=== PATIENT | female | born 1985 | race Caucasian/White ===

== ENCOUNTER 2016-06-22 12:15 | Emergency (ER) | payer OTHER ==
[2016-06-22] MEDS ORDERED: Aspirin Low Dose CHEW TAB* 81 MG PO ONE (12:45)
--- NOTE | 2016-06-22 13:07 | RAD ---
INDICATION: Chest pain COMPARISON: None. TECHNIQUE: Single AP portable view of the chest was obtained. FINDINGS: Image quality is compromised due to the relative inferiority of a portable chest x-ray. The heart and mediastinum exhibit normal size and contour. The lungs are grossly clear. There is no evidence of a large pleural effusion. Visualized bones are normal for the patient's age. IMPRESSION: No radiographic evidence for acute cardiopulmonary abnormality on this portable chest x-ray.
[2016-06-22 13:18] LABS: Hematocrit 42 % (35-47); Mean Corpuscular HGB Conc 33 g/dl (31-36); Mean Corpuscular Hemoglobin 29 pg (27-31); Mean Corpuscular Volume 86 fL (80-97); Mean Platelet Volume 8 um3 (7.4-10.4); Red Blood Count 4.91 10^6/ul (4.0-5.4); Red Cell Distribution Width 13 % (10.5-15); White Blood Count 7.8 10^3/ul (3.5-10.8)
[2016-06-22 13:36] LABS: ALT 46 U/L (7-52); AST 33 U/L (13-39); Albumin 4.1 g/dL (3.2-5.2); Alkaline Phosphatase 66 U/L (34-104); Anion Gap 7 mmol/L (2-11); BUN/Creatinine Ratio 18.1 (8-20); Blood Urea Nitrogen 13 mg/dL (6-24); CO2 Carbon Dioxide 25 mmol/L (22-32); Calcium 9.8 mg/dL (8.6-10.3); Chloride 103 mmol/L (101-111); Creatine Kinase 181 U/L (10-223); EGFR African American 123.2 (>60); EGFR Non-African American 95.8 (>60); Globulin 3.8 g/dL (2-4); Glucose 91 mg/dL (70-100); Magnesium 2.1 mg/dL (1.9-2.7); Potassium 3.7 mmol/L (3.5-5.0); Sodium 135 mmol/L (133-145); Total Protein 7.9 g/dL (6.4-8.9)
[2016-06-22] MEDS ORDERED: Iohexol 350* (CONTRAST) 500 ML MDV IV ONE (13:55)
--- NOTE | 2016-06-22 14:33 | RAD ---
INDICATION: Chest pain. Short of breath. Evaluate for pulmonary embolus. COMPARISON: Chest x-ray June 22, 2016 TECHNIQUE: Axial source images were obtained from the thoracic inlet to the hemidiaphragms following administration of [address] angiographic technique was utilized. Coronal and sagittal reconstructed images were acquired. CHEST FINDINGS: Neck/thyroid: The visualized neck to include the thyroid appear normal. Chest wall: There are no acute abnormalities of the bony thorax or chest wall. There is no supraclavicular, infraclavicular, or axillary lymphadenopathy. Lungs : There are no pulmonary parenchymal masses or infiltrates. The pulmonary interstitium appears normal. There are no endobronchial lesions. Cardiomediastinal structures: There is no CT evidence of acute pulmonary embolic disease. The heart is normal in size. There is no pericardial effusion. There is no evidence of aortic aneurysm or dissection. There is no mediastinal or hilar adenopathy. The esophagus appears normal. Pleura : There are no pleural-based masses or effusions. Other: None. IMPRESSION: NO CT EVIDENCE OF ACUTE PULMONARY EMBOLIC DISEASE. LUNGS CLEAR.
[2016-06-22 14:38] LABS: TSH (Thyroid Stimulating Horm) 0.78 mcIU/mL (0.34-5.60)
[2016-06-22] MEDS ORDERED: Ketorolac INJ* 30 MG/ML 1 ML VIAL IV PUSH ONE (14:49)
--- NOTE | 2016-06-22 14:58 | ED ---
Leopoldo Pantoja Adam, scribed for Moose Fierro MD on 06/22/16 at 1248 . HPI Chest Pain - HPI Summary HPI Summary: Pt is a 31 year old female presenting with CP. She states that she began having the pain while she was at home at 10:30 this morning. It is a sharp pain and it radiates to her back between her shoulder blades. The pain is 8/10 in severity now but it gets worse with movement and deep breaths. She also c/o difficulty catching her breath. She denies any N/V/D or abdominal pain. She denies being on oral contraception. She denies any PMHx or surgical hx. She denies any tobacco/alcohol/drug use. - History of Current Complaint Chief Complaint: EDChestPainROMI Time Seen by Provider: 06/22/16 12:39 Hx Obtained From: Patient Onset/Duration: Started Hours Ago, Atraumatic, Still Present Timing: Constant Initial Severity: Moderate Current Severity: Moderate Pain Intensity: 8 Pain Scale Used: 0-10 Numeric Chest Pain Location: Diffuse Chest Pain Radiates: Yes Chest Pain Radiates To:: Back Character: Sharp/Stabbing Aggravating Factor(s): Movement, Deep Breaths Alleviating Factor(s): Nothing Associated Signs and Symptoms: Positive: Shortness of Breath. Negative: Nausea , Vomiting - Allergy/Home Medications Allergies/Adverse Reactions: Allergies Allergy/AdvReac Type Severity Reaction Status Date / Time No Known Allergies Allergy Verified 06/22/16 12:20 PMH/Surg Hx/FS Hx/Imm Hx Endocrine/Hematology History: Denies: Hx Diabetes, Hx Thyroid Disease Cardiovascular History: Denies: Hx Hypertension Respiratory History: Denies: Hx Asthma, Hx Chronic Obstructive Pulmonary Disease (COPD) GI History: Denies: Hx Ulcer Infectious Disease History: No Infectious Disease History: Denies: Hx Hepatitis, Hx Human Immunodeficiency Virus (HIV), Traveled Outside the [place] in Last 30 Days - Family History Known Family History: Positive: None - Reviewed and noncontributory - Social History Occupation: Employed Part-time Lives: Alone Alcohol Use: None Hx Substance Use: No Substance Use Type: Reports: None Hx Tobacco Use: No Smoking Status (MU): Never Smoked Tobacco Have You Smoked in the Last Year: No Review of Systems Positive: Chest Pain Positive: Shortness Of Breath Negative: Abdominal Pain, Vomiting, Diarrhea, Nausea All Other Systems Reviewed And Are Negative: Yes Physical Exam - Summary Physical Exam Summary: VITAL SIGNS: Reviewed. GENERAL: Patient is a well developed and nourished who is lying comfortable in the stretcher. Patient is not in any acute respiratory distress. HEAD AND FACE: No signs of trauma. No ecchymosis, hematomas or skull depressions. No sinus tenderness. EYES: PERRLA, EOMI x 2, No injected conjunctiva, no nystagmus. EARS: Hearing grossly intact. Ear canals and tympanic membranes are within normal limits. MOUTH: Oropharynx within normal limits. NECK: Supple, trachea is midline, no adenopathy, no JVD, no carotid bruit, no c- spine tenderness, neck with full ROM. CHEST: Symmetric, positive tenderness at palpation at both rib cage areas. LUNGS: Clear to auscultation bilaterally. No wheezing or crackles. CVS: Regular rate and rhythm, S1 and S2 present, no murmurs or gallops appreciated. ABDOMEN: Soft, non-tender. No signs of distention. No rebound no guarding, and no masses palpated. Bowel sounds are normal. EXTREMITIES: FROM in all major joints, no edema, no cyanosis or clubbing. NEURO: Alert and oriented x 3. No acute neurological deficits. Speech is normal and follows commands. SKIN: Dry and warm Triage Information Reviewed: Yes Vital Signs On Initial Exam: Initial Vitals Temp Pulse Resp BP Pulse Ox 98.5 F 100 16 136/80 100 06/22/16 12:20 06/22/16 12:20 06/22/16 12:20 06/22/16 12:20 06/22/16 12:20 Vital Signs Reviewed: Yes Diagnostics - Vital Signs Vital Signs Temp Pulse Resp BP Pulse Ox 06/22/16 12:20 98.5 F 100 16 136/80 100 - Laboratory Lab Results: Lab Results 06/22/16 06/22/16 06/22/16 Range/Units 13:07 13:07 13:07 WBC 7.8 (3.5-10.8) 10^3/ul RBC 4.91 (4.0-5.4) 10^6/ul Hgb 14.0 (12.0-16.0) g/dl Hct 42 (35-47) % MCV 86 (80-97) fL MCH 29 (27-31) pg MCHC 33 (31-36) g/dl RDW 13 (10.5-15) % Plt Count 291 (150-450) 10^3/ul MPV 8 (7.4-10.4) um3 Neut % (Auto) 73.6 (38-83) % Lymph % (Auto) 16.5 L (25-47) % [place] % (Auto) 7.7 (1-9) % Eos % (Auto) 1.8 (0-6) % Baso % (Auto) 0.4 (0-2) % Absolute Neuts (auto) 5.8 (1.5-7.7) 10^3/ul Absolute Lymphs (auto) 1.3 (1.0-4.8) 10^3/ul Absolute Monos (auto) 0.6 (0-0.8) 10^3/ul Absolute Eos (auto) 0.1 (0-0.6) 10^3/ul Absolute Basos (auto) 0 (0-0.2) 10^3/ul Absolute Nucleated RBC 0 10^3/ul Nucleated RBC % 0 D-Dimer, Quantitative 247 H (Less Than 230) ng/mL Sodium 135 (133-145) mmol/L Potassium 3.7 (3.5-5.0) mmol/L Chloride 103 (101-111) mmol/L Carbon Dioxide 25 (22-32) mmol/L Anion Gap 7 (2-11) mmol/L BUN 13 (6-24) mg/dL Creatinine 0.72 (0.51-0.95) mg/dL Est GFR ( Amer) 123.2 (>60) Est GFR (Non-Af Amer) 95.8 (>60) BUN/Creatinine Ratio 18.1 (8-20) Glucose 91 (70-100) mg/dL Lactic Acid (0.5-2.0) mmol/L Calcium 9.8 (8.6-10.3) mg/dL Magnesium 2.1 (1.9-2.7) mg/dL Total Bilirubin 0.30 (0.2-1.0) mg/dL AST 33 (13-39) U/L ALT 46 (7-52) U/L Alkaline Phosphatase 66 (34-104) U/L Total Creatine Kinase 181 (10-223) U/L CK-MB (CK-2) 1.4 (0.6-6.3) ng/mL Troponin I 0.00 (<0.04) ng/mL B-Natriuretic Peptide ( - 100) pg/mL Total Protein 7.9 (6.4-8.9) g/dL Albumin 4.1 (3.2-5.2) g/dL Globulin 3.8 (2-4) g/dL Albumin/Globulin Ratio 1.1 (1-3) TSH 0.78 (0.34-5.60) mcIU/mL Beta HCG, Quant < 0.60 mIU/mL 06/22/16 06/22/16 Range/Units 13:07 13:07 WBC (3.5-10.8) 10^3/ul RBC (4.0-5.4) 10^6/ul Hgb (12.0-16.0) g/dl Hct (35-47) % MCV (80-97) fL MCH (27-31) pg MCHC (31-36) g/dl RDW (10.5-15) % Plt Count (150-450) 10^3/ul MPV (7.4-10.4) um3 Neut % (Auto) (38-83) % Lymph % (Auto) (25-47) % [place] % (Auto) (1-9) % Eos % (Auto) (0-6) % Baso % (Auto) (0-2) % Absolute Neuts (auto) (1.5-7.7) 10^3/ul Absolute Lymphs (auto) (1.0-4.8) 10^3/ul Absolute Monos (auto) (0-0.8) 10^3/ul Absolute Eos (auto) (0-0.6) 10^3/ul Absolute Basos (auto) (0-0.2) 10^3/ul Absolute Nucleated RBC 10^3/ul Nucleated RBC % D-Dimer, Quantitative (Less Than 230) ng/mL Sodium (133-145) mmol/L Potassium (3.5-5.0) mmol/L Chloride (101-111) mmol/L Carbon Dioxide (22-32) mmol/L Anion Gap (2-11) mmol/L BUN (6-24) mg/dL Creatinine (0.51-0.95) mg/dL Est GFR ( Amer) (>60) Est GFR (Non-Af Amer) (>60) BUN/Creatinine Ratio (8-20) Glucose (70-100) mg/dL Lactic Acid 1.0 (0.5-2.0) mmol/L Calcium (8.6-10.3) mg/dL Magnesium (1.9-2.7) mg/dL Total Bilirubin (0.2-1.0) mg/dL AST (13-39) U/L ALT (7-52) U/L Alkaline Phosphatase (34-104) U/L Total Creatine Kinase (10-223) U/L CK-MB (CK-2) (0.6-6.3) ng/mL Troponin I (<0.04) ng/mL B-Natriuretic Peptide 39 ( - 100) pg/mL Total Protein (6.4-8.9) g/dL Albumin (3.2-5.2) g/dL Globulin (2-4) g/dL Albumin/Globulin Ratio (1-3) TSH (0.34-5.60) mcIU/mL Beta HCG, Quant mIU/mL Result Diagrams: 06/22/16 13:07 06/22/16 13:07 Lab Statement: Any lab studies that have been ordered have been reviewed, and results considered in the medical decision making process. - Radiology CXR Radiology Interpretation Completed By: Radiologist - IMPRESSION: No radiographic evidence for acute cardiopulmonary abnormality on this portable chest x-ray. - EKG 12:27 Cardiac Rate: NL - 93 BPM EKG Rhythm: Sinus Rhythm - Normal EKG Interpretation: No ST elevations - Additional Comments Diagnostic Additional Comments: Troponin I - 0.00 D-Dimer, Quantitative - 247 Chest Pain Course/Dx - Course Course Of Treatment: Pt is a 31 year old female presenting with CP. She states that she began having the pain while she was at home at 10:30 this morning. It is a sharp pain and it radiates to her back between her shoulder blades. The pain is 8/10 in severity now but it gets worse with movement and deep breaths. She also c/o difficulty catching her breath. She denies any N/V/D or abdominal pain. She denies being on oral contraception. She denies any PMHx or surgical hx. She denies any tobacco/alcohol/drug use. Blood test are found within normal limits. CXR no acute cardiopulmonary disease. Since patient is tachycardic and she she is taking contraception I decided to do a Chest CT to r/ o PE. Chest CT: emphysema, no evidence of acute cardiopulmonary disease. In the ED course she was given Toradol for the pain. After medications she is feeling better. I believe all her symptoms are secondary to chest wall pain since Ct shows no PE or any acute cardiopulmonary pathology. also chest pain increases wit deep inspiration. I have no suspicion for ACS since pain is in both rib cage areas and back. I discussed all the findings and test results with the patient. Patient was instructed to return to the emergency room immediately if any of the symptoms return or worsens. Plan of care was discussed with the patient and understands and agrees. All questions were answered at patient satisfaction. There were no further complaints or concerns. Lung exam before discharge: CTA B/L. Good air exchange. No wheezing or crackles heard. CVS: S1 and S2 present. No murmurs appreciated. Patient is alert and oriented x 3. Patient is hemodynamically stable. Patient will be discharged home with follow up PCP in the next 2-3 days - Chest Pain Differential Diagnosis/HQI/PQRI: Angina, Chest Wall, GI Disease, Lower Respiratory Infection, Pulmonary Edema, Pulmonary Embolism - Diagnoses Provider Diagnoses: Atypical chest pain Discharge - Discharge Plan Condition: Stable Disposition: HOME Prescriptions: Naproxen TAB* [Naprosyn 250 mg TAB*] 500 mg PO Q8H PRN #20 tab PRN Reason: Pain Referrals: Austin Gregg MD [Primary Care Provider] - The documentation as recorded by the Leopoldo logan Adam accurately reflects the service I personally performed and the decisions made by me, Moose Fierro MD.
[2016-06-22 15:27] VITALS: BP 144/79
== END 2016-06-22 15:27 | disposition home or self-care (01) ==
LOC: ED 12:15
DX: R07.89 Other chest pain (principal)
CPT/HCPCS: 36415; 71010; 71275; 80053; 82550; 82553; 83605; 83735; 83880; 84443; 84484; 84702; 85025; 85379; 93005; 96374; 99283; A9270-GY; J1885; Q9967

== ENCOUNTER 2017-11-03 03:08 | Emergency (ER) | payer OTHER ==
[2017-11-03] MEDS ORDERED: oxyCODONE/Acetamin 5/325 MG* TAB ONE (04:37)
[2017-11-03] MEDS ORDERED: Amoxicillin PO (*) 500 MG CAP PO ONE (05:00)
--- NOTE | 2017-11-03 05:36 | ED ---
Throat Pain/Nasal Congestion - HPI Summary HPI Summary: Pt presents to the ED with R ear pain that started tonight, and got worse as the night went on. Pt states that the pain radiates into her jawline. She has wisdom teeth but they are not as painful as what she is currently experiencing. The only thing that the pt states helps distract from the pain is pacing. She had problems with her ear when she was little. She heard one pop in her ear earlier. Pt denies any drainage. Pt has had mild sinus issues with her allergies. Pt takes anxiety medicine. - History of Current Complaint Hx Obtained From: Patient Onset/Duration: Sudden Onset Severity: Severe Associated Signs And Symptoms: Positive: Sinus Discomfort - Allergies/Home Medications Allergies/Adverse Reactions: Allergies Allergy/AdvReac Type Severity Reaction Status Date / Time No Known Allergies Allergy Verified 06/22/16 12:20 PMH/Surg Hx/FS Hx/Imm Hx Previously Healthy: Yes Endocrine/Hematology History: Denies: Hx Diabetes, Hx Thyroid Disease Cardiovascular History: Denies: Hx Hypertension Respiratory History: Denies: Hx Asthma, Hx Chronic Obstructive Pulmonary Disease (COPD) GI History: Denies: Hx Ulcer Infectious Disease History: Denies: Hx Hepatitis, Hx Human Immunodeficiency Virus (HIV), Traveled Outside the [place] in Last 30 Days - Family History Known Family History: Positive: None - Reviewed and noncontributory - Social History Alcohol Use: None Hx Substance Use: No Substance Use Type: Reports: None Hx Tobacco Use: No Smoking Status (MU): Never Smoked Tobacco Have You Smoked in the Last Year: No Review of Systems Positive: Ear Ache Positive: Anxious All Other Systems Reviewed And Are Negative: Yes Physical Exam - Summary Physical Exam Summary: Appearance: Well-appearing, Well-nourished, lying in bed comfortable Skin: Warm, dry, no obvious rash Eyes: sclera anicteric, no conjunctival pallor ENT: mucous membranes moist, bulging of R eardrum, loss of landmarks Neck: deferred Respiratory: No signs of respiratory distress Cardiovascular: Appears well perfused, pulses are nml Abdomen: deferred Musculoskeletal: Moving all 4 extremities without obvious discomfort Neurological: Awake and alert, mentation is normal, speech is fluent and appropriate Psychiatric: affect is normal, mildly anxious due to pain Triage Information Reviewed: Yes Vital Signs Reviewed: Yes EENT Course/Dx - Diagnoses Provider Diagnoses: Right otitis media Discharge - Sign-Out/Discharge Documenting (check all that apply): Patient Departure - Discharge Plan Condition: Stable Disposition: HOME Referrals: Austin Gregg MD [Primary Care Provider] - - Attestation Statements Document Initiated by Scribe: Yes Documenting Scribe: Angie Hernandez Provider For Whom Scribe is Documenting (Include Credential): Benigno Light MD. Scribe Attestation: Angie Pantoja, scribed for Benigno Light MD. on 11/03/17 at 0535.
[2017-11-03 06:25] VITALS: BP 133/62
== END 2017-11-03 04:29 | disposition home or self-care (01) ==
LOC: ED 03:08
DX: H66.91 Otitis media, unspecified, right ear (principal); F41.9 Anxiety disorder, unspecified
CPT/HCPCS: 99282; A9270-GY